=== PATIENT | male | born 1960 | race Caucasian/White ===

== ENCOUNTER 2017-01-12 05:18 | Emergency (ER) | payer MEDICARE, OTHER ==
[~2017-01-12] VITALS: Ht 177.8 cm; Wt 81.1 kg
[~2017-01-12 05:18] MED LIST: ASPI325T PO; LISI-515 PO; PROT40TA PO; ZANT150T2 PO
[2017-01-12 05:26] VITALS: BP 150/106; PULSE 76; RESP 18; TEMP 97.9; O2SAT 97
[2017-01-12 05:30] VITALS: BP 186/110; PULSE 78; RESP 18; O2SAT 97
[2017-01-12 05:48] LABS: AUTOMATED NEUTROPHIL # 3.4 TH/MM3 (1.8-7.7); BASOPHIL % 0.8 % (0.0-2.0); EOSINOPHIL # 0.2 TH/MM3 (0-0.4); EOSINOPHIL % 3.4 % (0.0-4.0); HEMATOCRIT 43.1 % (39.0-51.0); HEMO FLAGS DIFF FINAL; LYMPH % 24.3 % (9.0-44.0); LYMPHOCYTE # 1.5 TH/MM3 (1.0-4.8); MEAN CELL VOLUME 91.2 FL (80.0-100.0); MONO % 16.1 % (0.0-8.0); NEUT % 55.4 % (16.0-70.0); PLATELET COUNT 207 TH/MM3 (150-450); RED BLOOD COUNT 4.73 MIL/MM3 (4.50-5.90); RED CELL DISTRIBUTION WIDTH 12.1 % (11.6-17.2); WHITE BLOOD COUNT 6.1 TH/MM3 (4.0-11.0)
[2017-01-12 05:54] LABS: CHLORIDE 103 MEQ/L (98-107); POTASSIUM 4.1 MEQ/L (3.5-5.1); SODIUM (NA) 139 MEQ/L (136-145)
[2017-01-12 05:58] LABS: ANION GAP 8 MEQ/L (5-15); BICARBONATE 27.7 MEQ/L (21.0-32.0); BLOOD UREA NITROGEN 9 MG/DL (7-18)
[2017-01-12 06:00] VITALS: BP 186/110; PULSE 75; RESP 18; O2SAT 99
[2017-01-12 06:01] LABS: ALT (GPT) 76 U/L (12-78); AST (GOT) 42 U/L (15-37); GLOMERULAR FILTRATION RATE 117 ML/MIN (>89)
[2017-01-12 06:02] LABS: TOTAL BILIRUBIN ADULT 0.8 MG/DL (0.2-1.0)
[2017-01-12 06:04] LABS: ALKALINE PHOSPHATASE 111 U/L (45-117)
[2017-01-12] MEDS ORDERED: KETOROLAC TROMETHAMINE 60 MG/2 ML (IM) VIAL IVP ONE (06:15)
--- NOTE | 2017-01-12 06:20 | PD ---
HPI Chief Complaint: Chest Pain Time Seen by Provider: 06:09 Travel History International Travel<30 days: No Contact w/Intl Traveler<30days: No Traveled to known affect area: No History of Present Illness HPI The patient is a 56-year-old male that complains of a sharp, pleuritic chest pain beginning yesterday morning. The pain persisted and he woke up this morning with the same pain. He states the pain is on both sides be chest and radiates up to his neck. The pain is described as stabbing. It is an 8/10. He states he had a similar pain when he had pneumonia previously. He denies any fever. He denies any hemoptysis. He has not particular short of breath, it just hurts for him to breathe. He quit smoking 5 years ago. PFSH Past Medical History Hx Anticoagulant Therapy: No Blood Disorders: No Anxiety: No Depression: No Heart Rhythm Problems: No Cancer: No Cardiac Catheterization: No Cardiovascular Problems: Yes (htn on meds) High Cholesterol: Yes Chest Pain: Yes Congestive Heart Failure: No Diabetes: No Diminished Hearing: No Endocrine: No Gastrointestinal Disorders: Yes (PEPTIC ULCERS) GERD: Yes Genitourinary: No Herniated Disk: Yes Hypertension: Yes Immune Disorder: No Implanted Vascular Access Dvce: Yes Musculoskeletal: Yes (multiple back surgeries ) Neurologic: Yes ("sciatic nerve") Psychiatric: No Reproductive: No Respiratory: No Immunizations Current: No Pneumonia: Yes Thyroid Disease: No Ulcer: Yes ?: Not Past Surgical History Body Medical Devices: TENS STIMULATOR WIRES Cardiac Surgery: Yes (cath) Coronary Artery Bypass Graft: No Neurologic Surgery: No Oral Surgery: Yes (TONSILLECTOMY) Tonsillectomy: Yes Other Surgery: Yes Family History Family Myocardial Infarction: Yes (FATHER FROM HEART ATTACK AGE 64.) Social History Alcohol Use: Yes (occasionally beer) Tobacco Use: No (quit 2011) Substance Use: No Allergies-Medications (Allergen,Severity, Reaction): Coded Allergies: Cipro (Verified Allergy, Severe, RASH, 01/12/17) Contrast Media (Verified Allergy, Severe, Rash, 01/12/17) MRI PRECAUTION (Verified Allergy, Severe, MRI CONTRAST/ HIVES, 01/12/17) Reported Meds & Prescriptions Reported Meds & Active Scripts Active [place] (Hydrocodone-Acetaminophen) 5-325 mg Tab 1 Tab PO Q4H PRN Prednisone (48) 10 mg tab Dose Pack (Prednisone) 10 Mg Dspk 10 Mg PO DIRECTED Protonix (Pantoprazole Sodium) 40 Mg Tab 40 Mg PO DAILY Reported Lisinopril 20 Mg Tab 20 Mg PO DAILY Aspirin 325 Mg Tab 325 Mg PO ONCE Zantac (Ranitidine HCl) 150 Mg Tab 150 Mg PO DAILY Review of Systems Except as stated in HPI: all other systems reviewed are Neg Physical Exam Narrative GENERAL: The patient is alert, oriented 3 in moderate to severe distress with his chest pain. His vital signs show blood pressure 150/106 but otherwise normal. SKIN: Focused skin assessment warm/dry. HEAD: Atraumatic. Normocephalic. EYES: Pupils equal and round. No scleral icterus. No injection or drainage. ENT: No nasal bleeding or discharge. Mucous membranes pink and moist. NECK: Trachea midline. No JVD. CARDIOVASCULAR: Regular rate and rhythm. No murmur appreciated. RESPIRATORY: No accessory muscle use. Clear to auscultation. Breath sounds equal bilaterally. GASTROINTESTINAL: Abdomen soft, non-tender, nondistended. Hepatic and splenic margins not palpable. MUSCULOSKELETAL: No obvious deformities. No clubbing. No cyanosis. No edema. NEUROLOGICAL: Awake and alert. No obvious cranial nerve deficits. Motor grossly within normal limits. Normal speech. PSYCHIATRIC: Appropriate mood and affect; insight and judgment normal. Data Data Last Documented VS Vital Signs Date Time Temp Pulse Resp B/P Pulse Ox O2 Delivery O2 Flow Rate FiO2 01/12/17 07:01 97.9 78 18 156/93 99 Room Air Orders Complete Blood Count With Diff (01/12/17 05:35) Comprehensive Metabolic Panel (01/12/17 05:35) Troponin I (01/12/17 05:35) Electrocardiogram (01/12/17 ) Chest, Pa & Lat (01/12/17 ) Ketorolac Inj (Toradol Inj) (01/12/17 06:15) Ct Thorax/ Chest Wo Iv Contras (01/12/17 06:13) Labs Laboratory Tests Test 01/12/17 05:30 White Blood Count 6.1 TH/MM3 Red Blood Count 4.73 MIL/MM3 Hemoglobin 14.7 GM/DL Hematocrit 43.1 % Mean Corpuscular Volume 91.2 FL Mean Corpuscular Hemoglobin 31.0 PG Mean Corpuscular Hemoglobin 34.0 % Concent Red Cell Distribution Width 12.1 % Platelet Count 207 TH/MM3 Mean Platelet Volume 7.9 FL Neutrophils (%) (Auto) 55.4 % Lymphocytes (%) (Auto) 24.3 % Monocytes (%) (Auto) 16.1 % Eosinophils (%) (Auto) 3.4 % Basophils (%) (Auto) 0.8 % Neutrophils # (Auto) 3.4 TH/MM3 Lymphocytes # (Auto) 1.5 TH/MM3 Monocytes # (Auto) 1.0 TH/MM3 Eosinophils # (Auto) 0.2 TH/MM3 Basophils # (Auto) 0.0 TH/MM3 CBC Comment DIFF FINAL Differential Comment Sodium Level 139 MEQ/L Potassium Level 4.1 MEQ/L Chloride Level 103 MEQ/L Carbon Dioxide Level 27.7 MEQ/L Anion Gap 8 MEQ/L Blood Urea Nitrogen 9 MG/DL Creatinine 0.70 MG/DL Estimat Glomerular Filtration 117 ML/MIN Rate Random Glucose 99 MG/DL Calcium Level 9.2 MG/DL Total Bilirubin 0.8 MG/DL Aspartate Amino Transf 42 U/L (AST/SGOT) Alanine Aminotransferase 76 U/L (ALT/SGPT) Alkaline Phosphatase 111 U/L Troponin I LESS THAN 0.02 NG/ML Total Protein 7.7 GM/DL Albumin 4.2 GM/DL MDM Medical Decision Making Medical Screen Exam Complete: Yes Emergency Medical Condition: Yes Medical Record Reviewed: Yes Interpretation(s) The chest x-ray and CT thorax shows no acute change. Differential Diagnosis Pleurisy, pneumonia, pneumothoraxhighly unlikely Narrative Course The patient is transferred to Dr. Hart, I can find only pleurisy and I actually wanted a second opinion from her. The patient will be observed until the patient decides whether he wants to be admitted or try it at home. Scripts Hydrocodone-Acetaminophen ([place])5-325 mg Tab1 Tab PO Q4H PRN (PAIN) #12 TAB Ref 0 Prov:Kendra Hart MD 01/12/17 Prednisone (48) 10 mg tab Dose Pack 10 Mg Dspk10 Mg PO DIRECTED #1 DSPK Ref 0 Prov:Kendra Hart MD 01/12/17 Jori Chanel MD Jan 12, 2017 06:20
--- NOTE | 2017-01-12 06:23 | RADHPO ---
EXAM DATE/TIME: 01/12/2017 05:51 [facility] COMPARISON: CHEST PA & LAT, September 09, 2015, 10:42. INDICATIONS : Upper chest and neck pain for 24 hours MEDICAL HISTORY : None. SURGICAL HISTORY : None. ENCOUNTER: Initial ACUITY: 1 day PAIN SCORE: 10/10 LOCATION: Bilateral upper chest FINDINGS: PA and lateral views of the chest demonstrate the lungs to be symmetrically aerated without evidence of mass, infiltrate or effusion. The cardiomediastinal contours are unremarkable. Multiple remote le ft rib fractures that are healed. CONCLUSION: 1. No active disease. Remote healed left rib fractures. Frandy Morse MD on January 12, 2017 at 6:21 Board Certified Radiologist. This report was verified electronically.
--- NOTE | 2017-01-12 06:36 | RADHPO ---
EXAM DATE/TIME: 01/12/2017 06:20 [facility] COMPARISON: No previous studies available for comparison. INDICATIONS : Chest and back pain today. RADIATION DOSE: 14.63 CTDIvol (mGy) MEDICAL HISTORY : Hypertension. SURGICAL HISTORY : None. ENCOUNTER: Initial ACUITY: 1 day PAIN SCALE: 8/10 LOCATION: chest TECHNIQUE: Volumetric scanning of the chest was performed. Using automated exposure control and adjustment of t he mA and/or kV according to patient size, radiation dose was kept as low as reasonably achievable to obtain optimal diagnostic quality images. FINDINGS: No lung consolidation. There is no pleural or pericardial effusion. No hilar, mediastinal axillary adenopathy. No acute bony abnormalities. Moderate degenerative change of the spine. No acute findings in the upper abdomen. CONCLUSION: 1. No acute findings on chest CT. Mild coronary calcifications. Frandy Morse MD on January 12, 2017 at 6:32 Board Certified Radiologist. This report was verified electronically.
[2017-01-12 06:48] VITALS: BP 155/96; PULSE 78; RESP 18; O2SAT 99
[2017-01-12 07:01] VITALS: BP 156/93; PULSE 78; RESP 18; TEMP 97.9; O2SAT 99
--- NOTE | 2017-01-12 07:10 | PD ---
Physical Exam Date Seen by Provider: Jan 12, 2017 Narrative Care assumed at 0700 pending completion of workup for chest pain. Patient reports pain that started in the right flank area and then worked its way across his entire precordium and up into his neck. He describes it as a sharp pain which is exacerbated by movement and breathing. He denies any cough or fever. He has not had any nausea or vomiting. Data Data Last Documented VS Vital Signs Date Time Temp Pulse Resp B/P Pulse Ox O2 Delivery O2 Flow Rate FiO2 01/12/17 07:01 97.9 78 18 156/93 99 Room Air Orders Complete Blood Count With Diff (01/12/17 05:35) Comprehensive Metabolic Panel (01/12/17 05:35) Troponin I (01/12/17 05:35) Electrocardiogram (01/12/17 ) Chest, Pa & Lat (01/12/17 ) Ketorolac Inj (Toradol Inj) (01/12/17 06:15) Ct Thorax/ Chest Wo Iv Contras (01/12/17 06:13) Labs Laboratory Tests Test 01/12/17 05:30 White Blood Count 6.1 TH/MM3 Red Blood Count 4.73 MIL/MM3 Hemoglobin 14.7 GM/DL Hematocrit 43.1 % Mean Corpuscular Volume 91.2 FL Mean Corpuscular Hemoglobin 31.0 PG Mean Corpuscular Hemoglobin 34.0 % Concent Red Cell Distribution Width 12.1 % Platelet Count 207 TH/MM3 Mean Platelet Volume 7.9 FL Neutrophils (%) (Auto) 55.4 % Lymphocytes (%) (Auto) 24.3 % Monocytes (%) (Auto) 16.1 % Eosinophils (%) (Auto) 3.4 % Basophils (%) (Auto) 0.8 % Neutrophils # (Auto) 3.4 TH/MM3 Lymphocytes # (Auto) 1.5 TH/MM3 Monocytes # (Auto) 1.0 TH/MM3 Eosinophils # (Auto) 0.2 TH/MM3 Basophils # (Auto) 0.0 TH/MM3 CBC Comment DIFF FINAL Differential Comment Sodium Level 139 MEQ/L Potassium Level 4.1 MEQ/L Chloride Level 103 MEQ/L Carbon Dioxide Level 27.7 MEQ/L Anion Gap 8 MEQ/L Blood Urea Nitrogen 9 MG/DL Creatinine 0.70 MG/DL Estimat Glomerular Filtration 117 ML/MIN Rate Random Glucose 99 MG/DL Calcium Level 9.2 MG/DL Total Bilirubin 0.8 MG/DL Aspartate Amino Transf 42 U/L (AST/SGOT) Alanine Aminotransferase 76 U/L (ALT/SGPT) Alkaline Phosphatase 111 U/L Troponin I LESS THAN 0.02 NG/ML Total Protein 7.7 GM/DL Albumin 4.2 GM/DL [facility] Supervised Visit with ELAINE: No Differential Diagnosis Differential diagnosis of chest pain includes but is not limited to musculoskeletal pain, pulmonary embolism, acute coronary syndrome, pneumonia, pleurisy Narrative Course Heart sounds are normal. Lungs are clear with good air movement throughout. Chest wall is nontender. There is no right upper quadrant tenderness and a negative Meyers sign. CBC & BMP Diagram 01/12/17 05:[address] 01/12/17 0613 Signed Impressions: Service Date/Time: December 06:20 - CONCLUSION: 1. No acute findings on chest CT. Mild coronary calcifications. Frandy Morse MD Chest X-Ray 01/12/17 0000 Signed Impressions: Service Date/Time: December 05:51 - CONCLUSION: 1. No active disease. Remote healed left rib fractures. Frandy Morse MD LFTs and cardiac enzymes are negative. No etiology for his chest pain has been found. He will be treated for pleurisy. Diagnosis Primary Impression: Chest pain Qualified Code: R07.9 - Chest pain, unspecified type Additional Impression: Pleurisy Patient Instructions: General Instructions, Pleurisy (DC) Med/Other Pt SpecificInfo: Prescription(s) given Scripts Hydrocodone-Acetaminophen ([place])5-325 mg Tab1 Tab PO Q4H PRN (PAIN) #12 TAB Ref 0 Prov:Kendra Hart MD 01/12/17 Prednisone (48) 10 mg tab Dose Pack 10 Mg Dspk10 Mg PO DIRECTED #1 DSPK Ref 0 Prov:Kendra Hart MD 01/12/17 Disposition: 01 DISCHARGE HOME Condition: Stable Kendra Hart MD Jan 12, 2017 07:10
[2017-01-12] MEDS ORDERED: NORC5TAB PO (07:13)
[2017-01-12] MEDS ORDERED: PRED10PA2 PO (07:13)
--- NOTE | 2017-01-12 13:26 | EKG ---
Date Performed: 01/12/2017 Time Performed: 05:31:36 PTAGE: 56 years EKG: Sinus rhythm . Normal ECG PREVIOUS TRACING : 09/24/2016 16.45 Compared to prior tracing no significant change DOCTOR: Jonathon Perez Interpretating Date/Time 01/12/2017 13:22:59
== END 2017-01-12 07:28 | disposition home or self-care (01) ==
LOC: PHED 05:18
DX: R09.1 Pleurisy (principal); M54.2 Cervicalgia; I10 Essential (primary) hypertension; Z87.891 Personal history of nicotine dependence
CPT/HCPCS: 71020; 71250; 80053; 84484; 85025; 93005; 96374; 99284; J1885